=== PATIENT | male | born 1965 | race Caucasian/White ===

== ENCOUNTER 2020-02-08 12:17 | Emergency (ER) | payer OTHER ==
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
[2020-02-08] MEDS ORDERED: Ibuprofen 800 MG Tab PO ONE (12:55)
[2020-02-08 13:07] VITALS: BP 125/75; PULSE 77
== END 2020-02-08 13:23 | disposition home or self-care (01) ==
LOC: MW.ED 12:17
DX: S80.02XA Contusion of left knee, initial encounter (principal); E66.9 Obesity, unspecified; Z68.36 Body mass index [BMI] 36.0-36.9, adult; Z79.899 Other long term (current) drug therapy; V89.2XXA Person injured in unspecified motor-vehicle accident, traffic, initial encounter
CPT/HCPCS: 99283; A9270